=== PATIENT | female | born 1950 | race Two or more races ===

== ENCOUNTER 2025-01-14 14:01 | Emergency (ER) | payer OTHER ==
[~2025-01-14] VITALS: Ht 172.7 cm; Wt 90.0 kg
[2025-01-14 14:04] VITALS: TEMP 98
--- NOTE | 2025-01-14 16:02 | ED.PDOC ---
Charles. trauma (HPI) HPI Comments 74-year-old female with a history of diabetes, colon cancer in remission brought in by family complaining of facial pain status post fall. Patient states she was attempting to step over a dog gate when her foot became caught on the gait and she fell forward hitting her face on a wood floor. She states she had transient blurred vision but did not lose consciousness. She states she was able to stand with the assistance and noted that her nose was bleeding and there was some bruising and swelling of her nose. She denies any current vision changes or focal weakness or other injury. She does report she was meeting to see her primary doctor due to having chest pain recently. She denies any chest pain currently. Chief Complaint: Facial Injury Time Seen by MD: 15:30 Reviewed notes: Nurses Notes, Medications, Allergies Allergies: Coded Allergies: NO KNOWN ALLERGIES (Unverified , 01/14/25) Home Meds Active Scripts Acetaminophen (Tylenol Extra Strength) 500 Mg Tab, 1000 MG PO Q6HP PRN, #30 TAB Prov:BRET BISWAS MD 01/14/25 Information Source: Patient Mode of Arrival: Ambulatory Severity: Moderate Timing: Minutes Duration: Since onset Prehospital treatment: None Location: Face Location of laceration: None Mechanism: Fall Associated signs and symtoms: Headache Past Medical History PAST MEDICAL HISTORY: Cancer (Colon cancer in remission), DM Surgical History (Other): Breast reduction [employer] History: Denies all [employer] Hx Family History Family History: Unknown Social History Smoker: Non-Smoker Alcohol: Denies ETOH Use Drugs: Denies Drug Use Lives In: Home Constitutional: denies: chills, diaphoresis, fatigue, fever, malaise, sweats, weakness, others EENTM: reports: blurred vision, others (NASAL BRIDGE PAIN); denies: double vision, ear bleeding, ear discharge, ear drainage, ear pain, ear ringing, eye pain, eye redness, hearing loss, mouth pain, mouth swelling, nasal discharge, nose bleeding, nose congestion, nose pain, photophobia, tearing, throat pain, throat swelling, voice changes Respiratory: denies: cough, hemoptysis, orthopnea, SOB at rest, shortness of breath, SOB with excertion, stridor, wheezing, others Cardiovascular: denies: chest pain, dizzy spells, diaphoresis, Dyspnea on exertion, edema, irregular heart beat, left arm pain, lightheadedness, palpitations, PND, syncope, others Gastrointestinal: denies: abdomen distended, abdominal pain, blood streaked bowels, constipated, diarrhea, dysphagia, difficulty swallowing, hematemesis, melena, nausea, poor appetite, poor fluid intake, rectal bleeding, rectal pain, vomiting, others Genitourinary: denies: abnormal vagina bleeding, burning, dyspareunia, dysuria, flank pain, frequency, hematuria, incontinence, pain, , vagina discharge, urgency, others Neurological: reports: headache; denies: dizziness, fainting, left sided numbness, left sided weakness, numbness, paresthesia, pre-existing deficit, right sided numbness, right sided weakness, seizure, speech problems, tingling, tremors, weakness, others Musculoskeletal: denies: back pain, gout, joint pain, joint swelling, muscle pain, muscle stiffness, neck pain, others Integumetry: denies: bruises, change in color, change in hair/nails, dryness, laceration, lesions, lumps, rash, wounds, others Allergic/Immunocompromised: denies: Difficulty Healing, Frequent Infections, Hives, Itching, others Hematologic/Lymphatic: denies: anemia, blood clots, easy bleeding, easy bruisi ng, swollen glands, others Endocrine: denies: excessive hunger, excessive sweating, excessive thirst, exce ssive urination, flushing, intolerance to cold, intolerance to heat, unexplained weight gain, unexplained weight loss, others Psychiatric: denies: anxiety, bipolar disorder, depression, hopeless, panic disorder, schizophrenia, sleepless, suicidal, others All Other Systems: Reviewed and Negative Physical Exam General Appearance: No Apparent Distress HEENT: PERRL/EOMI, Other (Nasal soft tissue tenderness and swelling. No crepitus. No acute epistaxis.) Neck: Full Range of Motion, Normal Inspection Respiratory: Lungs Clear, No Accessory Muscle Use, No Respiratory Distress, Normal Breath Sounds Cardiovascular: No Edema, No JVD, Regular Rate/Rhythm Breast Exam: Deferred Gastrointestinal: Non Tender, Soft Genitalia: Deferred Pelvic: Deferred Rectal: Deferred Extremities: Normal inspection, Normal range of motion, Non-tender, No pedal edema Neurologic: Alert (Oriented x4), Normal Affect, Normal Mood, Other (Ambulatory) Cerebellar Function: NOT DONE Reflexes: NOT DONE Skin: Dry, Normal Color, Warm Lymphatic: NOT DONE Was a procedure done? Was a procedure done?: No EKG EKG : Comments Sinus rhythm with occasional PACs, rate 76, normal intervals, left axis deviation, normal QRS, nonspecific T change Differential Diagnosis Multiple Trauma: Fractures, Contusion, Hematoma, Other (Angina, chest wall pain, heart disease, among others) X-Ray, Labs, Meds, VS Vital Signs Date Time Temp Pulse Resp B/P (MAP) Pulse Ox O2 Delivery O2 Flow Rate FiO2 01/14/25 16:17 67 18 190/91 (124) 96 01/14/25 14:07 76 01/14/25 14:04 98.0 83 16 151/110 95 98.0 Lab Test 01/14/25 16:59 01/14/25 16:05 Range/Units Troponin I High Sensitivity < 3 L < 3 L </=34 ng/L White Blood Count 9.0 4.4-10.8 10^3/uL Red Blood Count 5.33 H 4.0-5.20 10^6/uL Hemoglobin 14.2 12.2-16.2 g/dL Hematocrit 43.3 36.0-46.0 % Mean Corpuscular Volume 81.2 80.0-100.0 fL Mean Corpuscular Hemoglobin 26.7 L 28.0-32.0 pg Mean Corpuscular Hemoglobin Concent 32.9 32.0-36.0 g/dL Red Cell Distribution Width 16.4 H 11.8-14.3 % Platelet Count 289 140-450 10^3/uL Mean Platelet Volume 9.7 6.9-10.8 fL Neutrophils (%) (Auto) 58.9 37.0-80.0 % Lymphocytes (%) (Auto) 30.7 10.0-50.0 % Monocytes (%) (Auto) 7.7 0.0-12.0 % Eosinophils (%) (Auto) 2.0 0.0-7.0 % Basophils (%) (Auto) 0.7 0.0-2.0 % Neutrophils # (Auto) 5.3 1.6-8.6 10 ^3/uL Lymphocytes # (Auto) 2.8 0.4-5.4 10 ^3/uL Monocytes # (Auto) 0.7 0-1.3 10 ^3/uL Eosinophils # (Auto) 0.2 0-0.8 10 ^3/uL Basophils # (Auto) 0.1 0-0.2 10 ^3/uL Nucleated Red Blood Cells 0.1 % Sodium Level 145 136-145 mmol/L Potassium Level 4.0 3.5-5.1 mmol/L Chloride Level 110 H 98-107 mmol/L Carbon Dioxide Level 26 20-31 mmol/L Anion Gap 9 5-15 Blood Urea Nitrogen 10 9-23 mg/dL Creatinine 0.68 0.550-1.02 mg/dL Glomerular Filtration Rate Calc 91 >90 mL/min BUN/Creatinine Ratio 14.7 10.0-20.0 Serum Glucose 103 74-106 mg/dL Calcium Level 9.8 8.7-10.4 mg/dL B-Type Natriuretic Peptide 30.45 0-100 pg/mL PROCEDURE(s): CXRP - CHEST PORTABLE REASON: cp ORDER NUMBER(s): [id number], ACCESSION NUMBER(s): [id number] EXAM: XY CHEST PORTABLE HISTORY: cp COMPARISON: None TECHNIQUE: Portable AP view of the chest was performed. FINDINGS: No pneumothorax, consolidative infiltrates, or pulmonary edema. The heart is enlarged. There is thoracic degenerative disc disease. There is slight thoracic dextroscoliosis. IMPRESSION: Cardiomegaly without evidence of acute intrathoracic process. PROCEDURE(s): HWOCT - HEAD WITHOUT CONTRAST REASON: trauma to face ORDER NUMBER(s): [id number], ACCESSION NUMBER(s): [id number] EXAM: CT HEAD WITHOUT CONTRAST INDICATION: trauma to face TECHNIQUE: CT images of the head were obtained without administration of IV contrast. CT scans at this facility use dose modulation, iterative reconstruction, and/or weight based dosing when appropriate to reduce radiation dose to as low as reasonably achievable. COMPARISON: CT MAXILLOFACIAL WITHOUT on DOS: 01/14/25 FINDINGS: PARENCHYMA: No acute hemorrhage. There is no mass effect, midline shift, or herniation. There is preservation of the castorena white differentiation. Mild scattered hypoattenuation along the periventricular, centrum semiovale, and deep white matter tracts, which are nonspecific however statistically most likely represent chronic microvascular ischemic change. VENTRICLES: No hydrocephalus. EXTRA-AXIAL SPACES: No extra-axial fluid collections. OTHER: The bony structures are intact. Visualized portions of the paranasal sinuses and mastoid air cells are clear. IMPRESSION: 1. No CT evidence of an acute intracranial abnormality. PROCEDURE(s): FAC2C - MAXILLOFACIAL WITHOUT REASON: nasal trauma ORDER NUMBER(s): [id number], ACCESSION NUMBER(s): [id number] CT MAXILLOFACIAL WITHOUT INDICATION: nasal trauma TECHNIQUE: Noncontrast axial images of the facial bones are then obtained along with coronal and sagittal reformatted images. All CT scans at this facility use dose modulation, iterative reconstruction, and/or weight based dosing when appropriate to reduce radiation dose to as low as reasonably achievable. COMPARISON: CT HEAD WITHOUT CONTRAST on DOS: 01/14/25 FINDINGS: FACIAL BONES: The nasal, lacrimal, inferior nasal vinay, and palatine bones are intact. The vomer and perpendicular plate of the ethmoid are intact. The zygomatic bones are intact. The maxilla is intact. The mandible is intact. PARANASAL SINUSES: The bony margins of the paranasal sinuses are intact. There is no air fluid level within the sinuses. Mucous retention cysts bilateral inferior maxillary sinuses. ORBITS: The right and left globes are intact. The bony margins of the orbits are intact. The extraconal space is intact without inflammatory stranding of the extraconal fat. The extraocular muscles are symmetric. The intraconal space including the optic canal and nerve are symmetric. OTHER: There are multiple periapical dental lucencies compatible with periapical odontal disease. Soft tissue swelling along the anterior aspect of the nose. No drainable fluid collection. IMPRESSION: 1. No CT evidence of an acute facial fracture. 2. Soft tissue swelling along the anterior aspect of the nose. X-Ray, Labs, Meds, VS Comment 74-year-old female with a history of diabetes and colon cancer in remission presenting with nasal pain, bruising and swelling status post fall. Patient also complaining of recent chest pain, none today. ED cardiac workup also performed. Vitals remarkable for BP 151/110 Exam remarkable for nasal soft tissue swelling, bruising and tenderness Rhythm strip independently interpreted by me: Sinus rhythm, rate 76, no ectopy. Head CT unremarkable. Maxillofacial CT remarkable for nasal soft tissue swelling, chest x-ray unremarkable CBC, basic metabolic panel, BNP and 2 serial troponins unremarkable The following was ordered for the patient in the ED: [place] 5/325 mg p.o. On re-evaluation, patient is well-appearing, no new neurologic changes, stable vitals. No chest pain. Patient appears stable for discharge with close outpatient follow-up with her primary physician for referral to a net mvc developer for further evaluation of the chest pain. Rx Tylenol Time of 1ST Reevaluation: 16:00 Reevaluation 1ST: Unchanged Patient Education/Counseling: Diagnosis, Treatment Family Education/Counseling: No Family Present Departure 1 Departure Time of Disposition: 19:00 Impression: Primary Impression: Nasal contusion Qualified Codes: S00.33XA - Contusion of nose, initial encounter Disposition: HOME / SELF CARE / HOMELESS Condition: Stable Additional Instructions: Your blood tests were unremarkable. Your imaging studies were only remarkable for swelling of your nose. There were no broken bones or serious injuries. I have prescribed pain medication. Follow-up with your primary doctor in 1-2 days for referral to a net mvc developer for further evaluation of your recent chest pain. I have enclosed the imaging reports below to bring to your doctor when you follow-up. [place] [address] Ph: [phone] DIAGNOSTIC IMAGING Diagnostic Imaging Report : [id number] Signed PATIENT: SYDNEY EL ACCT: [id number] UNIT: [id number] : 1950 LOC: ER ROOM / BED: / AGE / SEX: 74 / F ADM STATUS: REG ER SERVICE [id number] ORDERING PHYSICIAN: BRET BISWAS MD PROCEDURE(s): HWOCT - HEAD WITHOUT CONTRAST REASON: trauma to face ORDER NUMBER(s): [id number], ACCESSION NUMBER(s): [id number] EXAM: CT HEAD WITHOUT CONTRAST INDICATION: trauma to face TECHNIQUE: CT images of the head were obtained without administration of IV contrast. CT scans at this facility use dose modulation, iterative reconstruction, and/or weight based dosing when appropriate to reduce radiation dose to as low as reasonably achievable. COMPARISON: CT MAXILLOFACIAL WITHOUT on DOS: 01/14/25 FINDINGS: PARENCHYMA: No acute hemorrhage. There is no mass effect, midline shift, or herniation. There is preservation of the castorena white differentiation. Mild scattered hypoattenuation along the periventricular, centrum semiovale, and deep white matter tracts, which are nonspecific however statistically most likely represent chronic microvascular ischemic change. VENTRICLES: No hydrocephalus. EXTRA-AXIAL SPACES: No extra-axial fluid collections. OTHER: The bony structures are intact. Visualized portions of the paranasal sinuses and mastoid air cells are clear. IMPRESSION: 1. No CT evidence of an acute intracranial abnormality. [place] [id number] Ph: [phone] DIAGNOSTIC IMAGING Diagnostic Imaging Report : [id number] Signed PATIENT: SYDNEY EL ACCT: [id number] UNIT: [id number] : 1950 LOC: ER ROOM / BED: / AGE / SEX: 74 / F ADM STATUS: REG ER SERVICE 1538 ORDERING PHYSICIAN: BRET BISWAS MD PROCEDURE(s): CXRP - CHEST PORTABLE REASON: cp ORDER NUMBER(s): [id number], ACCESSION NUMBER(s): [id number] EXAM: XY CHEST PORTABLE HISTORY: cp COMPARISON: None TECHNIQUE: Portable AP view of the chest was performed. FINDINGS: No pneumothorax, consolidative infiltrates, or pulmonary edema. The heart is enlarged. There is thoracic degenerative disc disease. There is slight thoracic dextroscoliosis. IMPRESSION: Cardiomegaly without evidence of acute intrathoracic process. [address] [address] Ph: [phone] DIAGNOSTIC IMAGING Diagnostic Imaging Report : [id number] Signed PATIENT: SYDNEY EL ACCT: [id number] UNIT: [id number] : 1950 LOC: ER ROOM / BED: / AGE / SEX: 74 / F ADM STATUS: REG ER SERVICE 1538 ORDERING PHYSICIAN: BRET BISWAS MD PROCEDURE(s): FAC2C - MAXILLOFACIAL WITHOUT REASON: nasal trauma ORDER NUMBER(s): [id number], ACCESSION NUMBER(s): [id number] CT MAXILLOFACIAL WITHOUT INDICATION: nasal trauma TECHNIQUE: Noncontrast axial images of the facial bones are then obtained along with coronal and sagittal reformatted images. All CT scans at this facility use dose modulation, iterative reconstruction, and/or weight based dosing when appropriate to reduce radiation dose to as low as reasonably achievable. COMPARISON: CT HEAD WITHOUT CONTRAST on DOS: 01/14/25 FINDINGS: FACIAL BONES: The nasal, lacrimal, inferior nasal vinay, and palatine bones are intact. The vomer and perpendicular plate of the ethmoid are intact. The zygomatic bones are intact. The maxilla is intact. The mandible is intact. PARANASAL SINUSES: The bony margins of the paranasal sinuses are intact. There is no air fluid level within the sinuses. Mucous retention cysts bilateral inferior maxillary sinuses. ORBITS: The right and left globes are intact. The bony margins of the orbits are intact. The extraconal space is intact without inflammatory stranding of the extraconal fat. The extraocular muscles are symmetric. The intraconal space including the optic canal and nerve are symmetric. OTHER: There are multiple periapical dental lucencies compatible with periapical odontal disease. Soft tissue swelling along the anterior aspect of the nose. No drainable fluid collection. IMPRESSION: 1. No CT evidence of an acute facial fracture. 2. Soft tissue swelling along the anterior aspect of the nose. e-Prescriptions Acetaminophen (Tylenol Extra Strength) 500 Mg Tab 1000 MG PO Q6HP PRN, #30 TAB Prov: BRET BISWSA MD 01/14/25 Discharged With: Relative Critical Care Note Critical Care Time?: No Stability Stability form required: No Heart Score Heart Score: Heart Score Response (Comments) Value History N/A 0 EKG N/A 0 Age N/A 0 Risk Factors N/A 0 Troponin N/A 0 Total 0 I personally scribed for BRET BISWAS MD ([email or web address]) on 01/14/25 at 16:02. Electronically submitted by Mesha Hoover ([email or web address]). I personally scribed for BRET BISWAS MD ([email or web address]) on 01/14/25 at 16:35. Electronically submitted by Mesha Hoover ([email or web address]). I personally scribed for BRET BISWAS MD ([email or web address]) on 01/14/25 at 16:36. Electronically submitted by Mesha Hoover ([email or web address]). I personally scribed for BRET BISWAS MD ([email or web address]) on 01/14/25 at 16:37. Electronically submitted by Mesha Hoover ([email or web address]). BRET BISWAS MD Jan 14, 2025 16:02
--- NOTE | 2025-01-14 16:14 | DVH ---
EXAM: CT HEAD WITHOUT CONTRAST INDICATION: trauma to face TECHNIQUE: CT images of the head were obtained without administration of IV contrast. CT scans at [facility] facility use dose modulation, iterative reconstruction, and/or weight based dosing when appropriate to reduce radiation dose to as low as reasonably achievable. COMPARISON: CT MAXILLOFACIAL WITHOUT on DOS: 01/14/25 FINDINGS: PARENCHYMA: No acute hemorrhage. There is no mass effect, midline shift, or herniation. There is pres ervation of the castorena white differentiation. Mild scattered hypoattenuation along the periventricular, centrum semiovale, and deep white matter tracts, which are nonspecific however statistically most li wilman represent chronic microvascular ischemic change. VENTRICLES: No hydrocephalus. EXTRA-AXIAL SPACES: No extra-axial fluid collections. OTHER: The bony structures are intact. Visualized portions of the paranasal sinuses and mastoid air cells are clear. IMPRESSION: 1. No CT evidence of an acute intracranial abnormality.
--- NOTE | 2025-01-14 16:16 | DVH ---
CT MAXILLOFACIAL WITHOUT INDICATION: nasal trauma TECHNIQUE: Noncontrast axial images of the facial bones are then obtained along with coronal and sagi ttal reformatted images. All CT scans at this facility use dose modulation, iterative reconstruction, and/or weight based dosing when appropriate to reduce radiation dose to as low as reasonably achieva ble. COMPARISON: CT HEAD WITHOUT CONTRAST on DOS: 01/14/25 FINDINGS: FACIAL BONES: The nasal, lacrimal, inferior nasal vinay, and palatine bones are intact. The vomer an d perpendicular plate of the ethmoid are intact. The zygomatic bones are intact. The maxilla is intac t. The mandible is intact. PARANASAL SINUSES: The bony margins of the paranasal sinuses are intact. There is no air fluid level within the sinuses. Mucous retention cysts bilateral inferior maxillary sinuses. ORBITS: The right and left globes are intact. The bony margins of the orbits are intact. The extracon al space is intact without inflammatory stranding of the extraconal fat. The extraocular muscles are symmetric. The intraconal space including the optic canal and nerve are symmetric. OTHER: There are multiple periapical dental lucencies compatible with periapical odontal disease. Sof t tissue swelling along the anterior aspect of the nose. No drainable fluid collection. IMPRESSION: 1. No CT evidence of an acute facial fracture. 2. Soft tissue swelling along the anterior aspect of the nose.
[2025-01-14 16:17] VITALS: BP 190/91; PULSE 67; RESP 18; O2SAT 96
--- NOTE | 2025-01-14 16:17 | DVH ---
EXAM: XY CHEST PORTABLE HISTORY: cp COMPARISON: None TECHNIQUE: Portable AP view of the chest was performed. FINDINGS: No pneumothorax, consolidative infiltrates, or pulmonary edema. The heart is enlarged. There is thor acic degenerative disc disease. There is slight thoracic dextroscoliosis. IMPRESSION: Cardiomegaly without evidence of acute intrathoracic process.
[2025-01-14 16:22] LABS: Hematocrit 43.3 % (36.0-46.0); Hemoglobin 14.2 g/dL (12.2-16.2); Mean Corpuscular Hemoglobin 26.7 pg (28.0-32.0); Mean Corpuscular Volume 81.2 fL (80.0-100.0); Nucleated Red Blood Cells % 0.1 %
[2025-01-14 16:25] LABS: Potassium 4.0 mmol/L (3.5-5.1); Sodium 145 mmol/L (136-145)
[2025-01-14 16:26] LABS: Calcium 9.8 mg/dL (8.7-10.4); Chloride 110 mmol/L (98-107)
[2025-01-14 16:31] LABS: Glucose 103 mg/dL (74-106)
[2025-01-14 16:32] LABS: BUN/Creatinine Ratio 14.7 (10.0-20.0); Blood Urea Nitrogen 10 mg/dL (9-23)
[2025-01-14 16:38] LABS: Anion Gap 9 (5-15); Carbon Dioxide 26 mmol/L (20-31)
[2025-01-14] MEDS ORDERED: HYDROcodone-ACET 5/325MG TAB PO ONE (19:15)
[2025-01-14] MEDS ORDERED: ACET-1304 PO (19:17)
--- NOTE | 2025-01-15 09:59 | ECG ---
[facility] Test Date: 2025-01-14 Test Time: 14:07:48 Pat Name: SYDNEY EL Department: [facility] ED Patient ID: [facility]-[id number] Room: Gender: F Senior Statistical Programmer: gp : 1950 Requested By: BRET CARSON Order Number: [id number] Reading MD: Measurements Intervals High View Rate: 76 P: 16 FL: 159 QRS: 23 QRSD: 93 T: 35 QT: 369 QTc: 415 Interpretive Statements Sinus rhythm Atrial premature complex Left ventricular hypertrophy Please click the below link to view image of tracing.
== END 2025-01-14 23:43 | disposition home or self-care (01) ==
LOC: ER 14:01
DX: S00.33XA Contusion of nose, initial encounter (principal); E11.9 Type 2 diabetes mellitus without complications; Z85.038 Personal history of other malignant neoplasm of large intestine; Z79.899 Other long term (current) drug therapy; W22.8XXA Striking against or struck by other objects, initial encounter; Y93.89 Activity, other specified; Y92.89 Other specified places as the place of occurrence of the external cause; Y99.8 Other external cause status
CPT/HCPCS: 36415; 70450; 70486; 71045; 80048; 83880; 84484; 85025; 93005